=== PATIENT | female | born 1970 | race Caucasian/White ===

== ENCOUNTER 2018-11-09 13:42 | Emergency (ER) | payer OTHER, SELFPAY ==
[2018-11-09 13:45] VITALS: BP 133/77; PULSE 70; RESP 20; TEMP 36.6; O2SAT 98; BMI 27.4
--- NOTE | 2018-11-09 15:32 | DI.RAD.S_ITS ---
PROCEDURE: XR HIP W PEL IF DONE RT 2V INDICATIONS: right hip pain TECHNIQUE: AP pelvis with lateral view(s) of the right hip(s). COMPARISON: None. FINDINGS: Bones: No fractures or dislocations. Pelvic ring appears intact. No suspicious bony lesions. There is a superior joint space narrowing seen of right hip, with associated remodeling changes with subchondral sclerosis and osteophyte formation. Soft tissues: The visualized bowel gas pattern is normal. No suspicious soft tissue calcifications. An IUD is seen at its expected location. IMPRESSION: Mild right hip degenerative change, without an acute bony abnormality identified by plain film. IUD incidentally noted. Dictated by: Olivier Fields M.D. on 11/09/2018 at 14:52 Approved by: Olivier Fields M.D. on 11/09/2018 at 14:52
--- NOTE | 2018-11-09 15:34 | ED.EXTPRO ---
HPI - Extremity Problem General Chief complaint: Extremity Problem,Nontraumatic Stated complaint: PAIN RIGHT HIP Time Seen by Provider: 11/09/18 15:21 Source: patient and other (walk in clinic provider) Mode of arrival: ambulatory Limitations: no limitations History of Present Illness HPI Narrative: This is a 48-year-old female comes to the emergency department with complaint of right hip pain patient states she has had problems with her psoas muscle recently. She states yesterday she did a lot of bending Um and picking up sticks and then noted last night that her right hip over the iliac crest region was painful and felt worse with movement of the leg. Patient states it has been increasing. She states she felt sort of lightheaded while walking around yesterday. She is not having any pain radiating down the leg, she is not having any numbness 1. Tingling. No abdominal pain no pain radiating to the back. Patient is denying any fevers, no nausea or vomiting. She has had 2 episodes of loose stools. No urinary frequency, urgency or dysuria. She denies any other past medical history, she denies any other surgical history, denies any tobacco use. She drinks wine occasionally and denies any other illicit drug use. She is currently living on [facility] and house sitting. She has not had any trauma or falls or injuries. Related Data Previous Rx's Medication Instructions Recorded ibuprofen 600 mg PO TID PRN #14 tab 11/09/18 lorazepam 0.5 mg PO BID-TID PRN #10 tab 11/09/18 Allergies Allergy/AdvReac Type Severity Reaction Status Date / Time No Known Allergies Allergy Uncoded 11/09/18 14:35 Review of Systems Review of Systems ROS Unobtainable: All systems reviewed & are unremarkable except as noted in HPI and below Constitutional Denies chills, Denies fever(s), Denies lethargy and Denies weakness Cardiovascular Denies chest pain, Denies irregular heart rhythm, Denies lightheadedness, Denies palpitations, Denies dyspnea, Denies dyspnea on exertion and Denies orthopnea Respiratory Denies cough, Denies dyspnea, Denies dyspnea on exertion and Denies wheezing Gastrointestinal Gastrointestinal: Denies abdominal pain, Denies change in bowel habits, Reports diarrhea (loose stool x 2), Denies nausea and Denies vomiting Genitourinary Denies hematuria, Denies dysuria, Denies pelvic pain, Denies flank pain, Denies urinary incontinence, Denies urinary hesitancy and Denies urinary urgency Musculoskeletal Reports as per HPI, Reports abnormal gait (pain with ambulation), Denies back pain, Denies arthralgias, Reports limited range of motion, Reports muscle cramps, Denies muscle weakness, Denies numbness, Denies radiating pain into limb, Reports stiffness (hip area) and Denies tingling Integumentary/Breasts Denies rash Neurologic Reports abnormal gait (pain with ambulation), Denies numbness, Denies tingling and Denies weakness Endocrine Denies palpitations Allergic/Immunologic Denies wheezing PFSH Social History Smoking Status: Never smoker Social History details: Lives in [place], [facility] sitting on [facility] Smoking Status: Never smoker alcohol intake: current substance use type: does not use Exam Narrative Exam Narrative: GEN: well nourished, well appearing female, alert and oriented x 3, patient appears to be in moderate distress. HEENT: Atraumatic, pupils are equal round reactive to light, extraocular movements are intact, nares are clear HEART: Regular rate and rhythm without murmur, clicks, rubs. LUNGS:Lungs clear to auscultation, no wheezes, rales, crackles, chest moves symmetrically ABD:bowel sounds normal, soft, non-tender with palpation of the abdomen and groin. no guarding, rebound, rigidity, no masses noted, no hepatosplenomegaly. No inguinal hernia noted. Patient has 2+ femoral pulse on the left. :No CVA tenderness. MSCL: Non-tender to palpation, patient has increased pain with internal/external rotation, flexion/extension of hip, no muscle atrophy, muscles strength 5/5 upper and lower extremities, full range of motion, normal gait NEURO:CN 2-12 intact, sensation normal Initial Vital Signs Initial Vital Signs: Vital Signs Temperature 97.9 F 11/09/18 13:45 Pulse Rate 70 11/09/18 13:45 Respiratory Rate 20 11/09/18 13:45 Blood Pressure 133/77 11/09/18 13:45 Pulse Oximetry 98 11/09/18 13:45 Course Orders Ordered: ED Orders 11/09/18 15:20 Urine Culture Stat Urine Microscopic Stat 11/09/18 15:32 XR hip w pel if done RT 2V Stat 11/09/18 15:40 C-Reactive Protein Quant Stat Complete Blood Count AUTO DIFF Stat Comprehensive Metabolic Panel Stat Erythrocyte Sedimentation Rate Stat Discontinued Medications Ketorolac Tromethamine (Toradol) 30 mg IV NOW ONE Stop: 11/09/18 15:34 Last Admin: 11/09/18 15:47 Dose: 30 mg Lorazepam (Ativan) 0.5 mg IV NOW ONE Stop: 11/09/18 15:34 Last Admin: 11/09/18 15:57 Dose: 0.5 mg Vital Signs - 8 hr 11/09/18 13:45 11/09/18 18:32 Temperature 97.9 F Pulse Rate 70 85 Respiratory Rate 20 16 Blood Pressure 133/77 Blood Pressure [Left Arm] 130/71 Pulse Oximetry 98 98 MDM - Extremity (Nontraumatic) Lab Data Result diagrams: 11/09/18 15:40 11/09/18 15:40 Lab Results 11/09/18 11/09/18 11/09/18 Range/Units 15:20 15:40 15:40 WBC 6.2 (4.5-11.0) X10^3/uL RBC 4.69 (4.0-5.2) X10^6/uL Hgb 14.7 (12.0-16.0) g/dL Hct 43.0 (36-46) % MCV 91.6 (80-100) fL MCH 31.2 (26-34) PG MCHC 34.1 (30-36) % RDW 13.6 (11.6-14.8) % Plt Count 193 (150-400) X10^3/uL Neut % (Auto) 72.5 (50-75) % Lymph % (Auto) 20.5 L (25-40) % [place] % (Auto) 5.4 (3-14) % Eos % (Auto) 1.0 L (2-4) % Baso % (Auto) 0.6 (0-2) % Neut # (Auto) 4500 (5042-1099) /uL Lymph # (Auto) 1300 (6966-3701) /uL [place] # (Auto) 300 (0-900) /uL Eos # (Auto) 100 (0-450) /uL Baso # (Auto) 0 (0-100) /uL ESR 5 (0-20) MM/HR Sodium 135 L (137-145) mmol/L Potassium 3.7 (3.4-5.1) mmol/L Chloride 101 (98-107) mmol/L Carbon Dioxide 24 (22-32) mmol/L BUN 8 (7-17) mg/dL Creatinine 0.70 (0.52-1.04) mg/dL Estimated GFR > 60.0 (>60) mL/min BUN/Creatinine Ratio 11.4 (6-22) Glucose 93 (70-100) mg/dL Calcium 8.9 (8.4-10.2) mg/dL Total Bilirubin 0.7 (0.2-1.3) mg/dL AST 30 (14-36) IU/L ALT 35 (9-52) IU/L Alkaline Phosphatase 71 (38-126) U/L C-Reactive Protein < 0.5 (<1.0) mg/dL Total Protein 7.8 (6.3-8.2) g/dL Albumin 4.6 (3.5-5.0) g/dL Globulin 3.2 (1.7-4.1) g/dL Albumin/Globulin Ratio 1.4 (1.0-2.8) Urine RBC 1-5/hpf (0-5/HPF) Urine WBC 5-10/hpf H (0-5/HPF) Ur Squamous Epith Cells 5-10 /hpf H Urine Bacteria Few (2-10) H (None) Ur Culture Indicated? Specimen cultured Point of Care Testing Test Results Negative Urine Dip Bedside Urine Glucose Negative Bedside Urine Bilirubin - Negative Bedside Urine Ketone ++ 40 Urine Specific [place] 1.020 Bedside Urine Occult Blood +/- Bedside Urine pH 6.0 Bedside Urine Protein - Negative Bedside Urine Urobilinogen - Negative Bedside Urine Nitrite - Negative Bedside Urine Leukocytes +++ 500 Esterase Imaging Data right hip xray: Radiologist's impression: [address] [address] XRay Report Signed Patient: Jessie Rubio [facility]#: [id number] : 1970Acct:[id number] Age/Sex: 48 / FDate of Service: 11/09/18 Loc: ED Accession Number: [id number] Procedure: XR hip w pel if done RT 2V Ordering Provider: Gina Oconnor D.O. PROCEDURE: XR HIP W PEL IF DONE RT 2V INDICATIONS: right hip pain TECHNIQUE: AP pelvis with lateral view(s) of the right hip(s). COMPARISON: None. FINDINGS: Bones: No fractures or dislocations. Pelvic ring appears intact. No suspicious bony lesions. There is a superior joint space narrowing seen of right hip, with associated remodeling changes with subchondral sclerosis and osteophyte formation. Soft tissues: The visualized bowel gas pattern is normal. No suspicious soft tissue calcifications. An IUD is seen at its expected location. IMPRESSION: Mild right hip degenerative change, without an acute bony abnormality identified by plain film. IUD incidentally noted. Dictated by: Olivier Fields M.D. on 11/09/2018 at 14:52 Approved by: Olivier Fields M.D. on 11/09/2018 at 14:52 [facility] Narrative Medical decision making narrative: Patient is more comfortable after Toradol and lorazepam. She states her pain has improved significantly. We discussed x-ray does not show any major changes some mild arthritic changes. Lab work does not show elevated CBC, no elevation in ESR CRP. Patient's abdominal labs are normal with no change in her renal function or liver enzymes. Patient's urine does show some mild blood in the leukocyte esterase but she also has squamous epithelials. I discussed we could treat for presumptive bladder infection but she would like to wait for urine culture and start antibiotics if it is positive. We discussed that on her physical exam she has no abdominal or flank tenderness which leads me to suspect that she does not have any intra-abdominal cause of her pain and describes a purely in the hip or really the iliac area and increased with movement of the leg. My suspicion for DVT or lower extremity clot is also low along with some a nerve process. We did discuss signs and symptoms to watch and reasons to return. Discharge Plan Departure Patient Disposition: Home Clinical Impression: Acute pain of right hip Instructions: DI for Hip Pain Activity Restrictions/Additional Instructions: Follow up in 2-3 days for recheck. Take ibuprofen 600mg every 6 hours as needed for pain. You may take tylenol up to 1000mg every 8 hours as needed with or instead of ibuprofen. Take lorazepam every 8 hours as needed for muscle spasm. This medication can make you sleepy do not drive, perform hazards activities or make any major decisions while taking it. Return to ER for fevers greater than 100.4F, abdominal pain, especially in the right lower quadrant, right flank pain, new weakness, numbness or loss of sensation in your extremity. Prescriptions: New lorazepam 0.5 mg tablet 0.5 mg PO BID-TID PRN (Reason: muscle spasm) Qty: 10 RF: 0 ibuprofen 600 mg tablet 600 mg PO TID PRN (Reason: pain) Qty: 14 RF: 0 Referrals: Jessica Cowan MD [Primary Care Provider] -
[2018-11-09 15:38] LABS: Bacteria Urine Few (2-10); Culture Indicated Urine Specimen Cultured; RBC Urine 1-5/HPF (0-5/HPF); Squamous Epithelial Cell Urine 5-10 /HPF; WBC Urine 5-10/HPF (0-5/HPF)
--- NOTE | 2018-11-09 15:40 | ED_ITS ---
HPI - Extremity Problem General Chief complaint: Extremity Problem,Nontraumatic Stated complaint: PAIN RIGHT HIP Time Seen by Provider: 11/09/18 15:21 Source: patient and other (walk in clinic provider) Mode of arrival: ambulatory Limitations: no limitations History of Present Illness HPI Narrative: This is a 48-year-old female comes to the emergency department with complaint of right hip pain patient states she has had problems with her psoas muscle recently. She states yesterday she did a lot of bending Um and picking up sticks and then noted last night that her right hip over the iliac crest region was painful and felt worse with movement of the leg. Patient states it has been increasing. She states she felt sort of lightheaded while walking around yesterday. She is not having any pain radiating down the leg, she is not having any numbness 1. Tingling. No abdominal pain no pain radiating to the back. Patient is denying any fevers, no nausea or vomiting. She has had 2 episodes of loose stools. No urinary frequency, urgency or dysuria. She denies any other past medical history, she denies any other surgical history, denies any tobacco use. She drinks wine occasionally and denies any other illicit drug use. She is currently living on [facility] and house sitting. She has not had any trauma or falls or injuries. Related Data Previous Rx's Medication Instructions Recorded ibuprofen 600 mg PO TID PRN #14 tab 11/09/18 lorazepam 0.5 mg PO BID-TID PRN #10 tab 11/09/18 Allergies Allergy/AdvReac Type Severity Reaction Status Date / Time No Known Allergies Allergy Uncoded 11/09/18 14:35 Review of Systems Review of Systems ROS Unobtainable: All systems reviewed & are unremarkable except as noted in HPI and below Constitutional Denies chills, Denies fever(s), Denies lethargy and Denies weakness Cardiovascular Denies chest pain, Denies irregular heart rhythm, Denies lightheadedness, Denies palpitations, Denies dyspnea, Denies dyspnea on exertion and Denies orthopnea Respiratory Denies cough, Denies dyspnea, Denies dyspnea on exertion and Denies wheezing Gastrointestinal Gastrointestinal: Denies abdominal pain, Denies change in bowel habits, Reports diarrhea (loose stool x 2), Denies nausea and Denies vomiting Genitourinary Denies hematuria, Denies dysuria, Denies pelvic pain, Denies flank pain, Denies urinary incontinence, Denies urinary hesitancy and Denies urinary urgency Musculoskeletal Reports as per HPI, Reports abnormal gait (pain with ambulation), Denies back pain, Denies arthralgias, Reports limited range of motion, Reports muscle cramps, Denies muscle weakness, Denies numbness, Denies radiating pain into limb, Reports stiffness (hip area) and Denies tingling Integumentary/Breasts Denies rash Neurologic Reports abnormal gait (pain with ambulation), Denies numbness, Denies tingling and Denies weakness Endocrine Denies palpitations Allergic/Immunologic Denies wheezing PFSH Social History Smoking Status: Never smoker Social History details: Lives in [place], housing sitting on [facility] Smoking Status: Never smoker alcohol intake: current substance use type: does not use Exam Narrative Exam Narrative: GEN: well nourished, well appearing female, alert and oriented x 3, patient appears to be in moderate distress. HEENT: Atraumatic, pupils are equal round reactive to light, extraocular movements are intact, nares are clear HEART: Regular rate and rhythm without murmur, clicks, rubs. LUNGS:Lungs clear to auscultation, no wheezes, rales, crackles, chest moves symmetrically ABD:bowel sounds normal, soft, non-tender with palpation of the abdomen and groi n. no guarding, rebound, rigidity, no masses noted, no hepatosplenomegaly. No inguinal hernia noted. Patient has 2+ femoral pulse on the left. :No CVA tenderness. MSCL: Non-tender to palpation, patient has increased pain with internal/external rotation, flexion/extension of hip, no muscle atrophy, muscles strength 5/5 upper and lower extremities, full range of motion, normal gait NEURO:CN 2-12 intact, sensation normal Initial Vital Signs Initial Vital Signs: Vital Signs Temperature 97.9 F 11/09/18 13:45 Pulse Rate 70 11/09/18 13:45 Respiratory Rate 20 11/09/18 13:45 Blood Pressure 133/77 11/09/18 13:45 Pulse Oximetry 98 11/09/18 13:45 Course Orders Ordered: ED Orders 11/09/18 15:20 Urine Culture Stat Urine Microscopic Stat 11/09/18 15:32 XR hip w pel if done RT 2V Stat 11/09/18 15:40 C-Reactive Protein Quant Stat Complete Blood Count AUTO DIFF Stat Comprehensive Metabolic Panel Stat Erythrocyte Sedimentation Rate Stat Discontinued Medications Ketorolac Tromethamine (Toradol) 30 mg IV NOW ONE Stop: 11/09/18 15:34 Last Admin: 11/09/18 15:47 Dose: 30 mg Lorazepam (Ativan) 0.5 mg IV NOW ONE Stop: 11/09/18 15:34 Last Admin: 11/09/18 15:57 Dose: 0.5 mg Vital Signs - 8 hr 11/09/18 13:45 11/09/18 18:32 Temperature 97.9 F Pulse Rate 70 85 Respiratory Rate 20 16 Blood Pressure 133/77 Blood Pressure [Left Arm] 130/71 Pulse Oximetry 98 98 MDM - Extremity (Nontraumatic) Lab Data Result diagrams: 11/09/18 15:40 11/09/18 15:40 Lab Results 11/09/18 11/09/18 11/09/18 Range/Units 15:20 15:40 15:40 WBC 6.2 (4.5-11.0) X10^3/uL RBC 4.69 (4.0-5.2) X10^6/uL Hgb 14.7 (12.0-16.0) g/dL Hct 43.0 (36-46) % MCV 91.6 (80-100) fL MCH 31.2 (26-34) PG MCHC 34.1 (30-36) % RDW 13.6 (11.6-14.8) % Plt Count 193 (150-400) X10^3/uL Neut % (Auto) 72.5 (50-75) % Lymph % (Auto) 20.5 L (25-40) % [place] % (Auto) 5.4 (3-14) % Eos % (Auto) 1.0 L (2-4) % Baso % (Auto) 0.6 (0-2) % Neut # (Auto) 4500 (8326-8739) /uL Lymph # (Auto) 1300 (0397-8309) /uL [place] # (Auto) 300 (0-900) /uL Eos # (Auto) 100 (0-450) /uL Baso # (Auto) 0 (0-100) /uL ESR 5 (0-20) MM/HR Sodium 135 L (137-145) mmol/L Potassium 3.7 (3.4-5.1) mmol/L Chloride 101 (98-107) mmol/L Carbon Dioxide 24 (22-32) mmol/L BUN 8 (7-17) mg/dL Creatinine 0.70 (0.52-1.04) mg/dL Estimated GFR > 60.0 (>60) mL/min BUN/Creatinine Ratio 11.4 (6-22) Glucose 93 (70-100) mg/dL Calcium 8.9 (8.4-10.2) mg/dL Total Bilirubin 0.7 (0.2-1.3) mg/dL AST 30 (14-36) IU/L ALT 35 (9-52) IU/L Alkaline Phosphatase 71 (38-126) U/L C-Reactive Protein < 0.5 (<1.0) mg/dL Total Protein 7.8 (6.3-8.2) g/dL Albumin 4.6 (3.5-5.0) g/dL Globulin 3.2 (1.7-4.1) g/dL Albumin/Globulin Ratio 1.4 (1.0-2.8) Urine RBC 1-5/hpf (0-5/HPF) Urine WBC 5-10/hpf H (0-5/HPF) Ur Squamous Epith Cells 5-10 /hpf H Urine Bacteria Few (2-10) H (None) Ur Culture Indicated? Specimen cultured Point of Care Testing Test Results Negative Urine Dip Bedside Urine Glucose Negative Bedside Urine Bilirubin - Negative Bedside Urine Ketone ++ 40 Urine Specific [place] 1.020 Bedside Urine Occult Blood +/- Bedside Urine pH 6.0 Bedside Urine Protein - Negative Bedside Urine Urobilinogen - Negative Bedside Urine Nitrite - Negative Bedside Urine Leukocytes +++ 500 Esterase Imaging Data right hip xray: Radiologist's impression: [address] [address] XRay Report Signed Patient: Jessie Rubio [facility]#: [id number] : 1970Acct:[id number] Age/Sex: 48 / FDate of Service: 11/09/18 Loc: ED Accession Number: [id number] Procedure: XR hip w pel if done RT 2V Ordering Provider: Gina Oconnor D.O. PROCEDURE: XR HIP W PEL IF DONE RT 2V INDICATIONS: right hip pain TECHNIQUE: AP pelvis with lateral view(s) of the right hip(s). COMPARISON: None. FINDINGS: Bones: No fractures or dislocations. Pelvic ring appears intact. No suspicious bony lesions. There is a superior joint space narrowing seen of right hip, with associated remodeling changes with subchondral sclerosis and osteophyte formation. Soft tissues: The visualized bowel gas pattern is normal. No suspicious soft tissue calcifications. An IUD is seen at its expected location. IMPRESSION: Mild right hip degenerative change, without an acute bony abnormality identified by plain film. IUD incidentally noted. Dictated by: Olivier Fields M.D. on 11/09/2018 at 14:52 Approved by: Olivier Fields M.D. on 11/09/2018 at 14:52 [facility] Narrative Medical decision making narrative: Patient is more comfortable after Toradol and lorazepam. She states her pain has improved significantly. We discussed x-ray does not show any major changes some mild arthritic changes. Lab work does not show elevated CBC, no elevation in ESR CRP. Patient's abdominal labs are normal with no change in her renal function or liver enzymes. Patient's urine does show some mild blood in the leukocyte esterase but she also has squamous epithelials. I discussed we could treat for presumptive bladder infection but she would like to wait for urine culture and start antibiotics if it is positive. We discussed that on her physical exam she has no abdominal or flank t enderness which leads me to suspect that she does not have any intra-abdominal cause of her pain and describes a purely in the hip or really the iliac area and increased with movement of the leg. My suspicion for DVT or lower extremity clot is also low along with some a nerve process. We did discuss signs and symptoms to watch and reasons to return. Discharge Plan Departure Patient Disposition: Home Clinical Impression: Acute pain of right hip Instructions: DI for Hip Pain Activity Restrictions/Additional Instructions: Follow up in 2-3 days for recheck. Take ibuprofen 600mg every 6 hours as needed for pain. You may take tylenol up to 1000mg every 8 hours as needed with or instead of ibuprofen. Take lorazepam every 8 hours as needed for muscle spasm. This medication can make you sleepy do not drive, perform hazards activities or make any major decisions while taking it. Return to ER for fevers greater than 100.4F, abdominal pain, especially in the right lower quadrant, right flank pain, new weakness, numbness or loss of sensation in your extremity. Prescriptions: New lorazepam 0.5 mg tablet 0.5 mg PO BID-TID PRN (Reason: muscle spasm) Qty: 10 RF: 0 ibuprofen 600 mg tablet 600 mg PO TID PRN (Reason: pain) Qty: 14 RF: 0 Referrals: Jessica Cowan MD [Primary Care Provider] -
[2018-11-09] MEDS: KETOROLAC 30 MG/ML VIAL IV (15:47)
[2018-11-09 15:52] LABS: Add Manual Diff / Slide Review NO; Basophils Absolute Auto 0 /uL (0-100); Basophils Percent Auto 0.6 % (0-2); Eosinophils Absolute Auto 100 /uL (0-450); Hemoglobin 14.7 g/dL (12.0-16.0); Lymphocytes Absolute Auto 1300 /uL (1100-4500); Lymphocytes Percent Auto 20.5 % (25-40); Mean Corpuscular HGB Conc 34.1 % (30-36); Mean Corpuscular Hemoglobin 31.2 PG (26-34); Mean Corpuscular Volume 91.6 fL (80-100); Monocytes Absolute Auto 300 /uL (0-900); Monocytes Percent Auto 5.4 % (3-14); Neutrophils Absolute Auto 4500 /uL (1500-7000); Neutrophils Percent Auto 72.5 % (50-75); Platelet Count 193 X10^3/uL (150-400); Red Blood Cell Count 4.69 X10^6/uL (4.0-5.2); Red Cell Distribution Width 13.6 % (11.6-14.8); White Blood Cell Count 6.2 X10^3/uL (4.5-11.0)
[2018-11-09] MEDS: LORazepam 2 MG/ML SYRINGE 0.5 MG IV (15:57)
[2018-11-09 16:11] LABS: Erythrocyte Sedimentation Rate 5 MM/HR (0-20)
[2018-11-09 16:44] LABS: Alanine Aminotransferase 35 IU/L (9-52); Albumin 4.6 g/dL (3.5-5.0); Albumin Globulin Ratio 1.4 (1.0-2.8); Alkaline Phosphatase 71 U/L (38-126); Aspartate Aminotransferase 30 IU/L (14-36); BUN Creatinine Ratio 11.4 (6-22); Bilirubin Total 0.7 mg/dL (0.2-1.3); Blood Urea Nitrogen 8 mg/dL (7-17); Calcium 8.9 mg/dL (8.4-10.2); Carbon Dioxide 24 mmol/L (22-32); Chloride 101 mmol/L (98-107); Estimated Glomerular Filt Rate > 60.0 mL/min (>60); Globulin 3.2 g/dL (1.7-4.1); Glucose 93 mg/dL (70-100); HEMOLYSIS < 15 (0-50); Potassium 3.7 mmol/L (3.4-5.1); Sodium 135 mmol/L (137-145); Total Protein 7.8 g/dL (6.3-8.2)
[2018-11-09 16:45] LABS: C-Reactive Protein Quant < 0.5 mg/dL (<1.0)
[2018-11-09 18:32] VITALS: BP 130/71; PULSE 85; RESP 16; O2SAT 98
== END 2018-11-09 19:01 | disposition home or self-care (01) ==
PROVIDERS: Emergency Provider Emergency Medicine; Family Provider Family Medicine Geriatric Medicine; PCP Family Medicine Geriatric Medicine
DX: M25.551 Pain in right hip (principal)
CPT/HCPCS: 36591; 73502; 80053; 81003; 81015; 81025; 85025; 85651; 86140; 87086; 96374; 96375; 99283; 99284; J1885; J2060

== ENCOUNTER 2020-06-06 08:37 | Emergency (ER) | payer OTHER, SELFPAY ==
[2020-06-06 08:43] VITALS: BP 151/101; PULSE 87; RESP 16; TEMP 37.2; O2SAT 100
--- NOTE | 2020-06-06 09:27 | ED.FEMALEGU ---
HPI - Female Genitourinary General Chief complaint: Urogenital-Female Stated complaint: ISSUES WITH IUD Time Seen by Provider: 06/06/20 09:07 Source: patient Mode of arrival: Ambulatory Limitations: no limitations History of Present Illness HPI Narrative: Patient complains 4 days pelvic cramping nonradiating denies any back pain. Denies any urine complaints. No vaginal discharge or bleeding. Patient is sexually active. Patient states same cramping pain 1 year ago when she needed to have her IUD changed. Patient provider no longer available. Patient is in between providers now. No recent illness. LMP 10 years ago when 1st initial IUD placed. Last colonoscopy within 5 years unremarkable according to patient. Denies any recent illness no cough cold congestion fever chills. No nausea or vomiting. Patient does have some watery diarrhea that started yesterday which she states has the same problem when she had IUD changed last year Related Data Previous Rx's Medication Instructions Recorded ibuprofen 600 mg PO TID PRN #14 tab 11/09/18 lorazepam 0.5 mg PO BID-TID PRN #10 tab 11/09/18 Allergies Allergy/AdvReac Type Severity Reaction Status Date / Time No Known Allergies Allergy Uncoded 11/09/18 14:35 Review of Systems Review of Systems Narrative: GENERAL: Denies chills, fatigue, malaise, fever, sweats. HEENT: Denies sinus pain, ear pain, sore throat, difficulty swallowing, dizziness. RESPIRATORY: Denies dyspnea, cough, wheezing, hemoptysis, sputum. CARDIOVASCULAR: Denies chest pain, palpitations, orthopnea, edema, GASTROINTESTINAL: Denies nausea, vomiting, complains of pelvic/abdominal pain, watery diarrhea, denies constipation, melena. : Denies dysuria, frequency, incontinence, hematuria, urinary retention. MUSCULOSKELETAL: denies weakness, joint pain, or bony pain SKIN: Denies rash, skin lesions, or other NEUROLOGIC: Denies weakness, headache, numbness, change in speech, confusion, seizures, incoordination. PSYCHIATRIC: No concerning psychosocial issues. ROS Unobtainable: All systems reviewed & are unremarkable except as noted in HPI and below Patient History Substance Use Type: does not use Exam Narrative Exam Narrative: GENERAL: patient appears stated age. Well-nourished, well-developed patient, in no distress, not toxic HEAD: Atraumatic. Normocephalic. EYES: Pupils equal round and reactive. Extraocular motions intact. No scleral icterus. No injection or drainage. ENT: Nose without bleeding, purulent drainage. Throat without erythema, tonsillar hypertrophy or exudate. Airway patent. NECK: Trachea midline. Non tender CARDIOVASCULAR: Regular rate and rhythm without murmurs, gallops, or rubs. RESPIRATORY: Clear to auscultation. Breath sounds equal bilaterally. No wheezes, rales, or rhonchi. GASTROINTESTINAL: Abdomen soft, non-tender, nondistended. No peritoneal signs, bowel sounds present/normal : female nurse present/at bedside, Kimba, normal external exam. No bleeding or blood in vagina. No discharge. String with IUD in place. No other parts of IUD extending out of the cervical os. No CMT. No adnexal tenderness. No lesions EXTREMITIES: No edema or joint tenderness. BACK: Nontender without deformity or crepitance. No flank tenderness. NEURO: AOx3. SKIN: No rash or erythema of visible areas PSYCH: Not anxious, is cooperative Initial Vital Signs Initial Vital Signs: Vital Signs Temperature 98.9 F 06/06/20 08:43 Pulse Rate 87 06/06/20 08:43 Respiratory Rate 16 06/06/20 08:43 Blood Pressure 151/101 H 06/06/20 08:43 Pulse Oximetry 100 06/06/20 08:43 Course Orders Ordered: ED Orders 06/06/20 09:44 GC Screen Stat Wet Prep Tric BV Veronika Stat 06/06/20 10:00 Urinalysis and Microscopic Stat 06/06/20 10:10 Complete Blood Count AUTO DIFF Stat Comprehensive Metabolic Panel Stat 06/06/20 10:26 XR pelvis 1-2V Stat 06/06/20 10:34 Test Serum,Qual Stat 06/06/20 11:13 US pelvic complete Stat Reevaluation(s) Reevaluation #1: Reviewed results with patient. She agrees as of right now no antibiotics or prescriptions indicated. Will take ibuprofen for pain. Will need follow-up with OBGYN/referral/primary care Time: 12:33 Vital Signs Vital signs: Vital Signs - 8 hr 06/06/20 08:43 Temperature 98.9 F Pulse Rate 87 Respiratory Rate 16 Blood Pressure 151/101 H Pulse Oximetry 100 MDM - Female Genitourinary Medical Records Attestation: I reviewed the patient's medical records. Lab Data Attestation: I reviewed the patient's lab results. Result diagrams: 06/06/20 10:10 06/06/20 10:10 Labs: Lab Results 06/06/20 06/06/20 06/06/20 Range/Units 10:00 10:10 10:10 WBC 3.7 L (4.5-11.0) X10^3/uL RBC 4.85 (4.0-5.2) X10^6/uL Hgb 15.4 (12.0-16.0) g/dL Hct 44.4 (36-46) % MCV 91.6 (80-100) fL MCH 31.7 (26-34) PG MCHC 34.6 (30-36) % RDW 13.7 (11.6-14.8) % Plt Count 158 (150-400) X10^3/uL Neut % (Auto) 83.9 H (50-75) % Lymph % (Auto) 9.3 L (25-40) % [place] % (Auto) 6.4 (3-14) % Eos % (Auto) 0.1 L (2-4) % Baso % (Auto) 0.3 (0-2) % Neut # (Auto) 3100 (5272-4943) /uL Lymph # (Auto) 300 L (6224-0478) /uL [place] # (Auto) 200 (0-900) /uL Eos # (Auto) 0 (0-450) /uL Baso # (Auto) 0 (0-100) /uL Sodium 137 (137-145) mmol/L Potassium 4.2 (3.4-5.1) mmol/L Chloride 105 (98-107) mmol/L Carbon Dioxide 24 (22-32) mmol/L BUN 9 (7-17) mg/dL Creatinine 0.74 (0.52-1.04) mg/dL Estimated GFR > 60.0 (>60) mL/min BUN/Creatinine Ratio 12.2 (6-22) Glucose 109 H (70-100) mg/dL Calcium 8.8 (8.4-10.2) mg/dL Total Bilirubin 0.5 (0.2-1.3) mg/dL AST 36 (14-36) IU/L ALT 30 (<35) IU/L Alkaline Phosphatase 85 (38-126) U/L Total Protein 7.4 (6.3-8.2) g/dL Albumin 4.3 (3.5-5.0) g/dL Globulin 3.1 (1.7-4.1) g/dL Albumin/Globulin Ratio 1.4 (1.0-2.8) Serum , Qual (Negative) Urine Color Yellow Urine Appearance Clear Urine pH 5.5 (4.5-8.0) Ur Specific [place] 1.020 (1.000-1.035) Urine Protein Negative (Negative) Urine Glucose (UA) Negative (Negative) g/dL Urine Ketones 1+ H (NEGATIVE) Urine Occult Blood Trace-intact (Negative) Urine Nitrate Negative (Negative) Urine Bilirubin Negative (NEGATIVE) Urine Urobilinogen 0.2 (0.2) E.U./dL Ur Leukocyte Esterase Negative (NEGATIVE) Urine RBC None seen (0-5/HPF) Urine WBC None seen (0-5/HPF) Ur Squamous Epith Cells 1-5 /hpf (0-5/HPF) Urine Bacteria None seen (None) Urine Mucus 1+ H (Negative) Ur Culture Indicated? Cult not indicated 06/06/20 Range/Units 10:34 WBC (4.5-11.0) X10^3/uL RBC (4.0-5.2) X10^6/uL Hgb (12.0-16.0) g/dL Hct (36-46) % MCV (80-100) fL MCH (26-34) PG MCHC (30-36) % RDW (11.6-14.8) % Plt Count (150-400) X10^3/uL Neut % (Auto) (50-75) % Lymph % (Auto) (25-40) % [place] % (Auto) (3-14) % Eos % (Auto) (2-4) % Baso % (Auto) (0-2) % Neut # (Auto) (4497-8374) /uL Lymph # (Auto) (7518-9094) /uL [place] # (Auto) (0-900) /uL Eos # (Auto) (0-450) /uL Baso # (Auto) (0-100) /uL Sodium (137-145) mmol/L Potassium (3.4-5.1) mmol/L Chloride (98-107) mmol/L Carbon Dioxide (22-32) mmol/L BUN (7-17) mg/dL Creatinine (0.52-1.04) mg/dL Estimated GFR (>60) mL/min BUN/Creatinine Ratio (6-22) Glucose (70-100) mg/dL Calcium (8.4-10.2) mg/dL Total Bilirubin (0.2-1.3) mg/dL AST (14-36) IU/L ALT (<35) IU/L Alkaline Phosphatase (38-126) U/L Total Protein (6.3-8.2) g/dL Albumin (3.5-5.0) g/dL Globulin (1.7-4.1) g/dL Albumin/Globulin Ratio (1.0-2.8) Serum , Qual Negative (Negative) Urine Color Urine Appearance Urine pH (4.5-8.0) Ur Specific [place] (1.000-1.035) Urine Protein (Negative) Urine Glucose (UA) (Negative) g/dL Urine Ketones (NEGATIVE) Urine Occult Blood (Negative) Urine Nitrate (Negative) Urine Bilirubin (NEGATIVE) Urine Urobilinogen (0.2) E.U./dL Ur Leukocyte Esterase (NEGATIVE) Urine RBC (0-5/HPF) Urine WBC (0-5/HPF) Ur Squamous Epith Cells (0-5/HPF) Urine Bacteria (None) Urine Mucus (Negative) Ur Culture Indicated? Imaging Data Pelvic x-ray: Radiologist's Impression: [address] [address] XRay Report Signed Patient: Jessie Rubio [facility]#: [id number] : 1970Acct:[id number] Age/Sex: 50 / FDate of Service: 06/06/20 Loc: ED Accession Number: [id number] Procedure: XR pelvis 1-2V Ordering Provider: Hardeep Damian MD PROCEDURE: XR PELVIS 1-2V INDICATIONS: Pelvic pain/IUD TECHNIQUE: Single frontal view(s) of the pelvis acquired. COMPARISON: [facility], CR, XR HIP W PEL IF DONE RT 2V, 11/09/2018, 15:44. FINDINGS: Bones: No fractures or dislocations. No suspicious bony lesions. Soft tissues: Visualized bowel gas pattern is normal. No suspicious soft tissue calcifications. Centrally positioned IUD noted over the pelvis. Stable over time from November of last year. IMPRESSION: Stable positioning of centrally positioned IUD from November 2018. Pelvic ultrasound may become necessary. Dictated by: Robbie Lujan M.D. on 06/06/2020 at 11:01 Approved by: Robbie Lujan M.D. on 06/06/2020 at 11:02 US - [employer] MANAGER: Radiologist's Impression: [address] [address] Ultrasound Report Signed Patient: Jessie Rubio [facility]#: [id number] : 1970Acct:[id number] Age/Sex: 50 / FDate of Service: 06/06/20 Loc: ED Accession Number: [id number] Procedure: US pelvic complete Ordering Provider: Hardeep Damian MD PROCEDURE: US PELVIC COMPLETE INDICATIONS: PELVIC PAIN TECHNIQUE: Real-time scanning was performed of the pelvic organs, with image documentation. Additional endovaginal scanning was necessary due to incomplete visualization of the adnexal and endometrial structures by transabdominal scanning. COMPARISON: [facility], CR, XR PELVIS 1-2V, 06/06/2020, 10:17. FINDINGS: Transabdominal scanning: No pathologic free abdominal or pelvic fluid. Endovaginal scanning: Uterus: Uterus is anteverted and normal in size at 8.9 x 5.1 x 4.6 cm. Left anterior subserosal fibroid measuring 2.2 x 2.1 x 1.9 cm. Left anterior subserosal fibroid measuring 1.4 x 1.4 x 1.3 cm. The endometrium measures 2 mm in combined thickness. IUD is in the expected position centered in the endometrial cavity. Small nabothian cysts. Ovaries: Right ovary measures 4.3 x 3.4 x 3.1 cm. Granulated anechoic right ovarian cyst measuring 3.3 x 3.1 x 1.6 cm. Hypoechoic right ovarian cyst measuring 1.3 x 1.3 x 1.2 cm. No internal vascularity is seen. Left ovary has been removed. IMPRESSION: 1. IUD is in the expected position. 2. Small subserosal uterine fibroids. 3. Mildly complex right ovarian cyst measuring 1.3 cm. -recommend follow-up pelvic ultrasound in 6-12 weeks. 4. Anechoic right ovarian cyst measuring 4.3 cm is benign. 5. Left ovary is been removed. Dictated by: Dorian Haynes M.D. on 06/06/2020 at 11:15 Approved by: Dorian Haynes M.D. on 06/06/2020 at 11:24 MDM Narrative Medical decision making narrative: Pelvic swabs reviewed. At this time only a few clue cells. No antibiotics indicated at this time. Denies any vaginal discharge. Or vaginal discomfort. Pelvic discomfort likely possibly due to ovarian cyst versus uterine fibroid Discharge Plan Departure Patient Disposition: Home Clinical Impression: Pelvic pain Discharge Date/Time: 06/06/20 13:25 Instructions: DI for Uterine Fibroids, DI for Ovarian Cyst, DI for Pelvic Pain Activity Restrictions/Additional Instructions: May continue ibuprofen for pain Call provided phone number to acquire new family physician. Will need to schedule for repeat ultrasound of the pelvis in 2 months. Return if worse or any concerns or questions. Prescriptions: No Action lorazepam 0.5 mg tablet 0.5 mg PO BID-TID PRN (Reason: muscle spasm) Qty: 10 RF: 0 ibuprofen 600 mg tablet 600 mg PO TID PRN (Reason: pain) Qty: 14 RF: 0 Referrals: [facility] [Outside]
[2020-06-06 10:13] LABS: Appearance Urine UA CLEAR; Bacteria Urine None Seen; Bilirubin Urine UA NEGATIVE (NEGATIVE); Color Urine UA YELLOW; Glucose Urine UA NEGATIVE (Negative); Ketones Urine UA 1+ (NEGATIVE); Leukocyte Esterase Urine UA NEGATIVE (NEGATIVE); Nitrite Urine UA NEGATIVE (Negative); Occult Blood Urine UA TRACE-INTACT (Negative); Protein Urine UA NEGATIVE (Negative); RBC Urine None Seen (0-5/HPF); Urobilinogen Urine UA 0.2 E.U./dL (0.2); WBC Urine None Seen (0-5/HPF)
[2020-06-06 10:15] LABS: pH Urine UA 5.5 (4.5-8.0)
[2020-06-06 10:16] LABS: Add Manual Diff / Slide Review NO; Basophils Absolute Auto 0 /uL (0-100); Basophils Percent Auto 0.3 % (0-2); Eosinophils Absolute Auto 0 /uL (0-450); Eosinophils Percent Auto 0.1 % (2-4); Hematocrit 44.4 % (36-46); Hemoglobin 15.4 g/dL (12.0-16.0); Lymphocytes Absolute Auto 300 /uL (1100-4500); Lymphocytes Percent Auto 9.3 % (25-40); Mean Corpuscular HGB Conc 34.6 % (30-36); Mean Corpuscular Hemoglobin 31.7 PG (26-34); Mean Corpuscular Volume 91.6 fL (80-100); Monocytes Absolute Auto 200 /uL (0-900); Monocytes Percent Auto 6.4 % (3-14); Neutrophils Absolute Auto 3100 /uL (1500-7000); Neutrophils Percent Auto 83.9 % (50-75); Platelet Count 158 X10^3/uL (150-400); Red Blood Cell Count 4.85 X10^6/uL (4.0-5.2); Red Cell Distribution Width 13.7 % (11.6-14.8); White Blood Cell Count 3.7 X10^3/uL (4.5-11.0)
[2020-06-06 10:16] LABS: Squamous Epithelial Cell Urine 1-5 /HPF (0-5/HPF)
[2020-06-06 10:17] LABS: Culture Indicated Urine Cult Not Indicated; Mucus Urine 1+ (Negative)
[2020-06-06 10:26] LABS: Alanine Aminotransferase 30 IU/L (<35); Albumin 4.3 g/dL (3.5-5.0); Albumin Globulin Ratio 1.4 (1.0-2.8); Alkaline Phosphatase 85 U/L (38-126); Aspartate Aminotransferase 36 IU/L (14-36); BUN Creatinine Ratio 12.2 (6-22); Bilirubin Total 0.5 mg/dL (0.2-1.3); Blood Urea Nitrogen 9 mg/dL (7-17); Calcium 8.8 mg/dL (8.4-10.2); Carbon Dioxide 24 mmol/L (22-32); Chloride 105 mmol/L (98-107); Estimated Glomerular Filt Rate > 60.0 mL/min (>60); Globulin 3.1 g/dL (1.7-4.1); Glucose 109 mg/dL (70-100); HEMOLYSIS 15 (0-50); Potassium 4.2 mmol/L (3.4-5.1); Sodium 137 mmol/L (137-145); Total Protein 7.4 g/dL (6.3-8.2)
--- NOTE | 2020-06-06 10:26 | DI.RAD.S_ITS ---
PROCEDURE: XR PELVIS 1-2V INDICATIONS: Pelvic pain/IUD TECHNIQUE: Single frontal view(s) of the pelvis acquired. COMPARISON: [facility], CR, XR HIP W PEL IF DONE RT 2V, 11/09/2018, 15:44. FINDINGS: Bones: No fractures or dislocations. No suspicious bony lesions. Soft tissues: Visualized bowel gas pattern is normal. No suspicious soft tissue calcifications. Centrally positioned IUD noted over the pelvis. Stable over time from November of last year. IMPRESSION: Stable positioning of centrally positioned IUD from November 2018. Pelvic ultrasound may become necessary. Dictated by: Robbie Lujan M.D. on 06/06/2020 at 11:01 Approved by: Robbie Lujan M.D. on 06/06/2020 at 11:02
[2020-06-06 10:44] LABS: Pregnancy Test Serum,Qual Negative (Negative)
--- NOTE | 2020-06-06 11:13 | DI.US.S_ITS ---
PROCEDURE: US PELVIC COMPLETE INDICATIONS: PELVIC PAIN TECHNIQUE: Real-time scanning was performed of the pelvic organs, with image documentation. Additional endovaginal scanning was necessary due to incomplete visualization of the adnexal and endometrial structures by transabdominal scanning. COMPARISON: [facility], CR, XR PELVIS 1-2V, 06/06/2020, 10:17. FINDINGS: Transabdominal scanning: No pathologic free abdominal or pelvic fluid. Endovaginal scanning: Uterus: Uterus is anteverted and normal in size at 8.9 x 5.1 x 4.6 cm. Left anterior subserosal fibroid measuring 2.2 x 2.1 x 1.9 cm. Left anterior subserosal fibroid measuring 1.4 x 1.4 x 1.3 cm. The endometrium measures 2 mm in combined thickness. IUD is in the expected position centered in the endometrial cavity. Small nabothian cysts. Ovaries: Right ovary measures 4.3 x 3.4 x 3.1 cm. Granulated anechoic right ovarian cyst measuring 3.3 x 3.1 x 1.6 cm. Hypoechoic right ovarian cyst measuring 1.3 x 1.3 x 1.2 cm. No internal vascularity is seen. Left ovary has been removed. IMPRESSION: 1. IUD is in the expected position. 2. Small subserosal uterine fibroids. 3. Mildly complex right ovarian cyst measuring 1.3 cm. -recommend follow-up pelvic ultrasound in 6-12 weeks. 4. Anechoic right ovarian cyst measuring 4.3 cm is benign. 5. Left ovary is been removed. Dictated by: Dorian Haynes M.D. on 06/06/2020 at 11:15 Approved by: Dorian Haynes M.D. on 06/06/2020 at 11:24
[2020-06-06 13:23] VITALS: BP 146/85; PULSE 76; O2SAT 99
== END 2020-06-06 13:25 | disposition home or self-care (01) ==
PROVIDERS: Emergency Provider Emergency Medicine; Family Provider Family Medicine Geriatric Medicine
DX: R10.2 Pelvic and perineal pain (principal); Z97.5 Presence of (intrauterine) contraceptive device
CPT/HCPCS: 36415; 72170; 76830; 76856; 80053; 81001; 84703; 85025; 87081; 87210; 99284

== ENCOUNTER 2021-02-06 13:21 | Emergency (ER) | payer OTHER, MEDICAID, SELFPAY ==
[2021-02-06 14:01] VITALS: BP 139/85; PULSE 76; RESP 16; TEMP 37; O2SAT 97; BMI 27.4
--- NOTE | 2021-02-06 15:30 | ED_ITS ---
HPI - General Adult General Chief complaint: Abdominal Pain Stated complaint: fibroid pain Time Seen by Provider: 02/06/21 15:10 Source: patient Mode of arrival: Ambulatory Limitations: no limitations History of Present Illness HPI narrative: Patient is a 51-year-old female. She has had a history of fibroids in the past. She has also had a history of her left ovary removed for which sounds like an ovarian torsion. She is here for evaluation of lower abdominal discomfort that she thinks is because of her fibroids. She is afebrile. Does not have a roll tester provider. States she has had some menopausal symptoms recently. Is also having some vaginal bleeding. Related Data Home Medications Medication Instructions Recorded Confirmed No Known Home Medications 07/24/20 07/24/20 Allergies Allergy/AdvReac Type Severity Reaction Status Date / Time No Known Allergies Allergy Uncoded 11/09/18 14:35 Review of Systems Constitutional Constitutional: Denies fever(s) Cardiovascular Cardiovascular: Denies chest pain and Denies dyspnea Respiratory Respiratory: Denies dyspnea Gastrointestinal Gastrointestinal: Reports abdominal pain Genitourinary Comments: Vaginal bleeding Integumentary/Breasts Skin/Breast: Denies rash Neurologic Neurologic: Denies behavioral changes Psychiatric Psychiatric: Denies behavioral changes Hematologic/Lymphatic On Anticoagulants: No Allergic/Immunologic Allergic/Immunologic: Denies urticaria Patient History Medical History Ovarian cyst Social History details: Lives in [facility] [address] Smoking Status: Never smoker alcohol intake: current substance use type: does not use Smoking Status: Never smoker Substance Use Type: does not use Exam Initial Vital Signs Initial Vital Signs: Vital Signs Temperature 98.6 F 02/06/21 14:01 Pulse Rate 76 02/06/21 14:01 Respiratory Rate 16 02/06/21 14:01 Blood Pressure 139/85 02/06/21 14:01 Pulse Oximetry 97 02/06/21 14:01 Const General: cooperative and comfortable Limitations: mental status not altered HENMT Head: normal to inspection and normocephalic Resp Effort & Inspection: normal respiratory effort Cardio Rate: regular rate GI Palpation: soft and tender (Lower abdomen) Skin Lesions: no lesions Rashes: no rashes Neuro General: patient alert and patient awake Cognition: normal cognition Speech: speech normal Extrem General: normal to inspection and capillary refill normal Psych Appearance: grossly normal and well kempt Course Orders Ordered: ED Orders 02/06/21 15:31 US pelvic complete Stat Vital Signs Vital signs: Vital Signs - 8 hr 02/06/21 14:01 02/06/21 19:15 Temperature 98.6 F 98.5 F Pulse Rate 76 76 Respiratory Rate 16 18 Blood Pressure 139/85 156/85 H Pulse Oximetry 97 99 Medical Decision Making Lab Data Lab results reviewed: Yes I reviewed the patient's lab results. Labs: Point of Care Testing Test Results Negative Urine Dip Bedside Urine Glucose Negative Bedside Urine Bilirubin - Negative Bedside Urine Ketone - Negative Urine Specific [place] 1.030 Bedside Urine Occult Blood - Negative Bedside Urine pH 6.0 Bedside Urine Protein - Negative Bedside Urine Urobilinogen - Negative Bedside Urine Nitrite - Negative Bedside Urine Leukocytes - Negative Esterase Point of care testing: Point of Care Testing Test Results Negative Urine Dip Bedside Urine Glucose Negative Bedside Urine Bilirubin - Negative Bedside Urine Ketone - Negative Urine Specific [place] 1.030 Bedside Urine Occult Blood - Negative Bedside Urine pH 6.0 Bedside Urine Protein - Negative Bedside Urine Urobilinogen - Negative Bedside Urine Nitrite - Negative Bedside Urine Leukocytes - Negative Esterase Imaging Data US - abdomen: Radiologist's Impression: IUD in place, which reduces quality of visualization of the endometrial lining. Scattered uterine fibroids are present with the largest which measures up to 2.4 cm. This produces uterine myometrial heterogenicity. Right ovary appears normal, prior left oophorectomy. No signs of ovarian torsion. MDM Narrative Medical decision making narrative: IUD in place. Ultrasound does show fibroids but no signs of ovarian torsion. Urine shows no signs of urinary tract infection. Will discharge patient with information for follow-up with local gynecologist. She was given return precautions. She expressed understanding and agreement Discharge Plan Departure Patient Disposition: Home Clinical Impression: Fibroid, uterine Instructions: DI for Uterine Fibroids Activity Restrictions/Additional Instructions: Recommend that you take Tylenol/ibuprofen for any discomfort. I also recommend that you contact the [facility] to make an appointment with the gynecologist providers. Their phone number is [phone]. Return to the emergency department for any new or worsening symptoms Prescriptions: No Action No Known Home Medications RF: 0 Referrals: Ria Brown ARNP [Primary Care Provider] -
--- NOTE | 2021-02-06 15:31 | DI.US.S_ITS ---
PROCEDURE: US PELVIC COMPLETE INDICATIONS: HISTORY OF OVARIAN TORSION/CYSTS. RIGHT PELVIC PAIN. TECHNIQUE: Real-time scanning was performed of the pelvic organs, with image documentation. Additional endovaginal scanning was necessary due to incomplete visualization of the adnexal and endometrial structures by transabdominal scanning. COMPARISON: [facility], , US PELVIC COMPLETE, 06/06/2020, 11:43. FINDINGS: Uterus: Uterus is normal in size at 4.8 x 5.2 x 5.6 cm. The endometrium is difficult to accurately assess due to IUD in place. Uterine fibroids are present, located at the midline anterior in the fundal area measuring up to 2.4 cm, and in the body of the uterus measuring up to 1.2 and 1.0 cm and scattered throughout the uterus without dystrophic calcifications. Ovaries: The right ovary measures 2.3 x 2.9 x 1.8 cm and reportedly a left or fract a me has been performed. Other: No pathologic free abdominal or pelvic fluid. IMPRESSION: IUD in place, which reduces quality of visualization of the endometrial lining. Scattered uterine fibroids are present the largest of which measures up to 2.4 cm. This produces uterine myometrial heterogeneity. Right ovary appears normal, prior left oophorectomy. No sign of right ovarian torsion. Dictated by: Robbie Lujan M.D. on 02/06/2021 at 17:35 Approved by: Robbie Lujan M.D. on 02/06/2021 at 17:37
[2021-02-06 19:15] VITALS: BP 156/85; PULSE 76; RESP 18; TEMP 36.9; O2SAT 99
== END 2021-02-06 19:23 | disposition home or self-care (01) ==
PROVIDERS: Emergency Provider Emergency Medicine; Family Provider Family Medicine Geriatric Medicine; PCP Nurse Practitioner Family
DX: D25.9 Leiomyoma of uterus, unspecified (principal)
CPT/HCPCS: 76830; 76856; 81003; 81025; 99283